=== PATIENT | female | born 1950 | race Caucasian/White ===

== ENCOUNTER 2017-04-28 13:29 | Emergency (ER) | payer OTHER ==
[~2017-04-28] VITALS: Ht 160 cm; Wt 56.6 kg
[~2017-04-28 13:29] MED LIST: AMLO-114 PO; CHOLTAB3 PO; MIRT15TA2 PO; NAPR-1169 PO; OMEP20TA40 PO; ONDA4TAB4 PO; OXYC-609 PO
[2017-04-28 13:34] VITALS: TEMP 36.6; Ht 160 cm; Wt 56.6 kg
[2017-04-28] MEDS ORDERED: ASPIRIN 81 MG CHEW PO STA (13:51)
--- NOTE | 2017-04-28 13:52 | EMERGENCY ROOM VISIT NOTE ---
History Report prepared by Cruz: Chauncey Edwards Under the Supervision of: Dr. Marilyn Carvalho M.D. First contact with patient: 13:41 Chief Complaint: CHEST PAIN Stated Complaint: CP, SOB History of Present Illness The patient is a 67 year old female who presents to the Emergency Room with complaints of persistent mid chest pain that started 2 days ago. She states that she has had a bit of shortness of breath as well. The patient notes that deep breathing worsens the pain. She went to Urgent Care prior to arrival today and was told to come here for further evaluation. The patient says she has not taken any medications for the pain. She denies any recent illnesses, abdominal pain, cough, or fevers. She has not had any recent travels. The patient notes that she has a history of MRSA, but no history of heart disease. She does not smoke cigarettes. The patient still has her gallbladder. The patient's mother had a provoked blood clot after a leg injury. Source of History: patient Onset: 2 days ago Position: chest Quality: other (pain) Timing: other (persistent) Modifying Factors (Worsening): breathing Associated Symptoms: + SOB, No fevers, No cough, No abdominal pain Note: Associated symptoms: Denies recent illnesses. Review of Systems See HPI for pertinent positives & negatives. A total of 10 systems reviewed and were otherwise negative. Past Medical & Surgical Medical Problems: (1) Benign hypertension (2) Bilateral thoracoscopic sympathectomy (3) Raynaud's disease Family History Blood clots Hypertension Social History Smoking Status: Never Smoker Smokeless Tobacco Use: No Alcohol Use: occasionally Marital Status: Housing Status: lives alone Occupation Status: employed Current/Historical Medications Scheduled Amlodipine (Norvasc), 10 MG PO BID Cholecalciferol (Vitamin D3), 1 CAP PO DAILY Gabapentin (Neurontin), 800 MG PO BID Tramadol (Ultram), 1 TAB PO BID Allergies Coded Allergies: Furosemide (Verified Allergy, Mild, rash, 04/28/17) Sulfa Antibiotics (Verified Allergy, Unknown, hives, 04/28/17) Linezolid (Verified Adverse Reaction, Unknown, fatigue, loss of appetite, 04/28/17) Physical Exam Vital Signs Date Time Temp Pulse Resp B/P (MAP) Pulse Ox O2 Delivery O2 Flow Rate FiO2 04/28/17 15:48 65 18 132/71 96 04/28/17 14:30 62 20 133/83 97 Room Air 04/28/17 13:52 71 04/28/17 13:34 36.6 67 18 146/88 97 Room Air Physical Exam Vital signs reviewed. General: Well-appearing 67 year old female, in no significant distress. HEENT: No scleral icterus, PERRLA, neck supple. Atraumatic. Cardiovascular: Regular rate and rhythm, no extra sounds. Pulmonary: Clear to auscultation bilaterally, normal work of breathing. Abdomen: Soft, nontender, nondistended, positive bowel sounds. Musculoskeletal: Atraumatic, no peripheral edema. Neurologic: Patient awake alert and oriented x 3, full strength in all 4 extremities. Cranial nerves 2 through 12 grossly intact. Skin: Warm, dry, no rash Medical Decision & Procedures ER Provider Diagnostic Interpretation: Radiology results as stated below per my review and radiologist interpretation: CHEST ONE VIEW PORTABLE CLINICAL HISTORY: chest pain COMPARISON STUDY: 05/15/2014 FINDINGS: The bones soft tissues and hemidiaphragms are normal. The cardiomediastinal silhouette is normal. The lungs are clear. The pulmonary vasculature is normal. Possible small nodular density left pulmonary apex with CT chest recommended. IMPRESSION: Artifact versus small nodular density left pulmonary apex. CT of chest is recommended as follow-up. Study is otherwise negative. The above report was generated using voice recognition software. It may contain grammatical, syntax or spelling errors. Electronically signed by: Kai Yuen M.D. 04/28/2017 2:33 PM Dictated Date/Time: 04/28/2017 2:25 PM (CHEST) THORAX WITH CT DOSE: 197.30 mGy.cm HISTORY: Nodule pulmonary nodule L pulm apex TECHNIQUE: Multiaxial CT images of the chest were performed following the intravenous administration of contrast. A dose lowering technique was utilized adhering to the principles of ALARA. COMPARISON: 01/05/2014 FINDINGS: 8 x 4 mm groundglass nodule medially anterior to the left major fissure image 15. This appears represent a slightly progressive air or interval development compared to the prior study. Lungs otherwise are clear. Minimal dependent basilar atelectasis. Small hiatal hernia. Air filled esophagus unchanged in the prior study. No significant mediastinal or hilar adenopathy. IMPRESSION: 1. 8 x 4 mm groundglass nodule medially anterior to the left major fissure image 15. 2. Stated chest is otherwise negative. 3. Follow-up per Fleischner criteria Please refer to below summary of Fleischner criteria recommendations for follow-up of incidental CT nodules (Thad Manriquez, Guidelines for management of small pulmonary nodules detected on CT scans: A statement from the Fleischner Society, Radiology 237: [phone].) SOLID NODULES Solitary nodule size: <6 mm * low risk patients: no follow-up needed * high risk patients: optional CT at 12 months Solitary nodule size: 6-8 mm * low risk patients: follow-up at 6-12 months, then consider further follow-up at 18-24 months * high risk patients: initial follow-up CT at 6-12 months and then at 18-24 months if no change Solitary nodule size: >8 mm * either low or high risk patients - consider follow-up CT at 3 months, and/or CT-PET, and/or biopsy Multiple nodules size: <6 mm * low risk patients: no routine follow-up * high risk patients: optional CT at 12 months Multiple nodules size: 6-8 mm * low risk patients: follow-up at 3-6 months, then consider further follow-up at 18-24 months * high risk patients: follow-up at 3-6 months, then at 18-24 months if no change Multiple nodules size: >8 mm * low risk patients: follow-up at 3-6 months, then consider further follow-up at 18-24 months * high risk patients: follow-up at 3-6 months, then at 18-24 months if no change Note: newly detected indeterminate nodule in persons 35 years of age or older. * Low risk patients: minimal or absent history of smoking and/or other known risk factors * high risk patients: history of smoking or of other known risk factors (e.g. first degree relative with lung cancer, or exposure to asbestos, radon, uranium) * if a nodule up to 8 mm is partly solid or is ground glass further follow-up is required after 24 months to exclude possible slow growing adenocarcinoma (ADRIANNE) SUBSOIL NODULES Solitary pure ground-glass nodule * nodule size <6 mm - no CT follow-up required * nodule size >=6 mm - follow-up CT at 6-12 months, then every 2 years until 5 years Solitary part-solid nodule * nodule size <6 mm - no CT follow-up required * nodule size >=6 mm - follow-up CT at 3-6 months. If unchanged, and solid component remains <6 mm, then annual follow-up for 5 years Multiple subsolid nodules * nodule size <6 mm - follow-up CT at 3-6 months, consider further follow-up at 2 and 4 years if stable * nodule size >=6 mm - follow-up CT at 3-6 months, subsequent management based on the most suspicious nodule(s) The above report was generated using voice recognition software. It may contain grammatical, syntax or spelling errors. Electronically signed by: Kai Yuen M.D. 04/28/2017 3:10 PM Dictated Date/Time: 04/28/2017 3:06 PM Laboratory Results 04/28/17 14:15 Red Blood Count 4.46, Mean Corpuscular Volume 97.5, Mean Corpuscular Hemoglobin 32.7, Mean Corpuscular Hemoglobin Concent 33.6, Mean Platelet Volume 9.1, Neutrophils (%) (Auto) 71.5, Lymphocytes (%) (Auto) 21.7, Monocytes (%) (Auto) 5.6, Eosinophils (%) (Auto) 0.7, Basophils (%) (Auto) 0.2, Neutrophils # (Auto) 7.17, Lymphocytes # (Auto) 2.17, Monocytes # (Auto) 0.56, Eosinophils # (Auto) 0.07, Basophils # (Auto) 0.02 04/28/17 14:15 Test 04/28/17 14:15 04/28/17 14:22 White Blood Count 10.02 K/uL (4.8-10.8) Red Blood Count 4.46 M/uL (4.2-5.4) Hemoglobin 14.6 g/dL (12.0-16.0) Hematocrit 43.5 % (37-47) Mean Corpuscular Volume 97.5 fL (80-100) Mean Corpuscular Hemoglobin 32.7 pg (25-34) Mean Corpuscular Hemoglobin Concent 33.6 g/dl (32-36) Platelet Count 253 K/uL (130-400) Mean Platelet Volume 9.1 fL (7.4-10.4) Neutrophils (%) (Auto) 71.5 % Lymphocytes (%) (Auto) 21.7 % Monocytes (%) (Auto) 5.6 % Eosinophils (%) (Auto) 0.7 % Basophils (%) (Auto) 0.2 % Neutrophils # (Auto) 7.17 K/uL (1.4-6.5) Lymphocytes # (Auto) 2.17 K/uL (1.2-3.4) Monocytes # (Auto) 0.56 K/uL (0.11-0.59) Eosinophils # (Auto) 0.07 K/uL (0-0.5) Basophils # (Auto) 0.02 K/uL (0-0.2) RDW Standard Deviation 48.7 fL (36.4-46.3) RDW Coefficient of Variation 13.7 % (11.5-14.5) Immature Granulocyte % (Auto) 0.3 % Immature Granulocyte # (Auto) 0.03 K/uL (0.00-0.02) Anion Gap 6.0 mmol/L (3-11) Est Creatinine Clear Calc Drug Dose 55.9 ml/min Estimated GFR () 85.8 Estimated GFR (Non- 74.0 BUN/Creatinine Ratio 13.6 (10-20) Calcium Level 9.2 mg/dl (8.5-10.1) Magnesium Level 1.8 mg/dl (1.8-2.4) Total Bilirubin 0.9 mg/dl (0.2-1) Direct Bilirubin 0.2 mg/dl (0-0.2) Aspartate Amino Transf (AST/SGOT) 26 U/L (15-37) Alanine Aminotransferase (ALT/SGPT) 24 U/L (12-78) Alkaline Phosphatase 86 U/L (45-117) Total Creatine Kinase 105 U/L (26-192) Creatine Kinase MB 1.3 ng/ml (0.5-3.6) Creatine Kinase MB Ratio 1.2 (0-3.0) Total Protein 7.4 gm/dl (6.4-8.2) Albumin 3.8 gm/dl (3.4-5.0) Lipase 351 U/L (73-393) Bedside D-Dimer 291 ng/mlFEU (0-450) Bedside Troponin I < 0.030 ng/ml (0-0.045) Laboratory results per my review. Medications Administered Medications (Trade) Dose Ordered Sig/Todd Route Start Time Stop Time Status Last Admin Dose Admin Aspirin (Aspirin Chew) 324 mg NOW STAT PO 04/28/17 13:51 04/28/17 13:53 DC 04/28/17 13:59 324 MG ECG Indication: chest pain Rate (beats per minute): 62 Rhythm: normal sinus Findings: T-wave inversion (Anterior), no ectopy, other (no ST elevation) ED Course 1343: Past medical records reviewed. The patient was evaluated in room C8. A complete history and physical examination was performed. 1351: Ordered Aspirin Chew 324 mg PO. 1455: I reevaluated the patient and told her that she needs a CT for her pulmonary nodule. Medical Decision DDx: Acute coronary syndrome, pulmonary embolus, aortic dissection, musculoskeletal pain, pneumonia, pleural effusion, pneumothorax This patient was evaluated and appeared to be in no significant distress. She was given aspirin 324 mg to chew. EKG was performed and reveals no evidence of acute ischemia. The x-ray of the chest reveals a pulmonary nodule in the left apex. Cardiac enzymes are normal. D-dimer is normal. Radiology recommends CT scan in follow-up regarding the pulmonary nodule. This study was performed and is read as an 8 x 4 mm nodule. Findings were explained to the patient. She seems to have expressed understanding. Patient was referred to her PCP in follow-up. I do not think this is the source of the patient's pain today, rather it is likely pleuritic. She was encouraged to return to the ER for worsening of symptoms or any medical concerns. Medication Reconcilliation Current Medication List: was personally reviewed by me Blood Pressure Screening Patient's blood pressure: Elevated blood pressure Blood pressure disposition: Elevated BP felt to be situational Impression Primary Impression: Pain of anterior chest wall with respiration Additional Impression: Pulmonary nodule Scribe Attestation The scribe's documentation has been prepared under my direction and personally reviewed by me in its entirety. I confirm that the note above accurately reflects all work, treatment, procedures, and medical decision making performed by me. Departure Information Referrals No Doctor, Assigned (PCP) Patient Instructions My [facility] Problem Qualifiers
[2017-04-28] MEDS ORDERED: CHOL2000 PO (14:01)
[2017-04-28] MEDS ORDERED: TRAM-10 PO (14:01)
[2017-04-28] MEDS ORDERED: GABA800T PO (14:01)
[2017-04-28 14:25] LABS: BASO % 0.2 %; BASO ABS # 0.02 K/uL (0-0.2); COMPLETE YES; EOS % 0.7 %; HEMATOCRIT 43.5 % (37-47); IG% 0.3 %; LYMPH % 21.7 %; LYMPH ABS # 2.17 K/uL (1.2-3.4); MEAN CELL VOLUME 97.5 fL (80-100); MEAN CORPUSCULAR HEMOGLOBIN 32.7 pg (25-34); MEAN CORPUSCULAR HGB CONC 33.6 g/dl (32-36); MEAN PLATELET VOLUME 9.1 fL (7.4-10.4); MONO % 5.6 %; NEUT % 71.5 %; PLATELET COUNT 253 K/uL (130-400); RED BLOOD COUNT 4.46 M/uL (4.2-5.4); WHITE BLOOD COUNT 10.02 K/uL (4.8-10.8)
--- NOTE | 2017-04-28 14:34 | DIAGNOSTIC IMAGING REPORT ---
CHEST ONE VIEW PORTABLE CLINICAL HISTORY: chest pain COMPARISON STUDY: 05/15/2014 FINDINGS: The bones soft tissues and hemidiaphragms are normal. The cardiomediastinal silhouette is normal. The lungs are clear. The pulmonary vasculature is normal. Possible small nodular density left pulmonary apex with CT chest recommended. IMPRESSION: Artifact versus small nodular density left pulmonary apex. CT of chest is recommended as follow-up. Study is otherwise negative. The above report was generated using voice recognition software. It may contain grammatical, syntax or spelling errors. Electronically signed by: Kai Yuen M.D. 04/28/2017 2:33 PM Dictated Date/Time: 04/28/2017 2:25 PM
[2017-04-28 14:41] LABS: POINT OF CARE TROPONIN I < 0.030 ng/ml (0-0.045)
[2017-04-28 14:41] LABS: BUN/CREATININE RATIO 13.6 (10-20); CALCIUM 9.2 mg/dl (8.5-10.1); CREATININE 0.83 mg/dl (0.60-1.20); MAGNESIUM 1.8 mg/dl (1.8-2.4); POTASSIUM 4.2 mmol/L (3.5-5.1)
[2017-04-28 14:44] LABS: CKMB/CK RATIO 1.2 (0-3.0)
[2017-04-28] MEDS ORDERED: OPTIRAY 320 IV PRN (15:00)
--- NOTE | 2017-04-28 15:12 | DIAGNOSTIC IMAGING REPORT ---
(CHEST) THORAX WITH CT DOSE: 197.30 mGy.cm HISTORY: Nodule pulmonary nodule L pulm apex TECHNIQUE: Multiaxial CT images of the chest were performed following the intravenous administration of contrast. A dose lowering technique was utilized adhering to the principles of ALARA. COMPARISON: 01/05/2014 FINDINGS: 8 x 4 mm groundglass nodule medially anterior to the left major fissure image 15. This appears represent a slightly progressive air or interval development compared to the prior study. Lungs otherwise are clear. Minimal dependent basilar atelectasis. Small hiatal hernia. Air filled esophagus unchanged in the prior study. No significant mediastinal or hilar adenopathy. IMPRESSION: 1. 8 x 4 mm groundglass nodule medially anterior to the left major fissure image 15. 2. Stated chest is otherwise negative. 3. Follow-up per Fleischner criteria Please refer to below summary of Fleischner criteria recommendations for follow-up of incidental CT nodules (Thad Manriquez, Guidelines for management of small pulmonary nodules detected on CT scans: A statement from the Fleischner Society, Radiology 237: [phone].) SOLID NODULES Solitary nodule size: <6 mm * low risk patients: no follow-up needed * high risk patients: optional CT at 12 months Solitary nodule size: 6-8 mm * low risk patients: follow-up at 6-12 months, then consider further follow-up at 18-24 months * high risk patients: initial follow-up CT at 6-12 months and then at 18-24 months if no change Solitary nodule size: >8 mm * either low or high risk patients - consider follow-up CT at 3 months, and/or CT-PET, and/or biopsy Multiple nodules size: <6 mm * low risk patients: no routine follow-up * high risk patients: optional CT at 12 months Multiple nodules size: 6-8 mm * low risk patients: follow-up at 3-6 months, then consider further follow-up at 18-24 months * high risk patients: follow-up at 3-6 months, then at 18-24 months if no change Multiple nodules size: >8 mm * low risk patients: follow-up at 3-6 months, then consider further follow-up at 18-24 months * high risk patients: follow-up at 3-6 months, then at 18-24 months if no change Note: newly detected indeterminate nodule in persons 35 years of age or older. * Low risk patients: minimal or absent history of smoking and/or other known risk factors * high risk patients: history of smoking or of other known risk factors (e.g. first degree relative with lung cancer, or exposure to asbestos, radon, uranium) * if a nodule up to 8 mm is partly solid or is ground glass further follow-up is required after 24 months to exclude possible slow growing adenocarcinoma (ADRIANNE) SUBSOIL NODULES Solitary pure ground-glass nodule * nodule size <6 mm - no CT follow-up required * nodule size >=6 mm - follow-up CT at 6-12 months, then every 2 years until 5 years Solitary part-solid nodule * nodule size <6 mm - no CT follow-up required * nodule size >=6 mm - follow-up CT at 3-6 months. If unchanged, and solid component remains <6 mm, then annual follow-up for 5 years Multiple subsolid nodules * nodule size <6 mm - follow-up CT at 3-6 months, consider further follow-up at 2 and 4 years if stable * nodule size >=6 mm - follow-up CT at 3-6 months, subsequent management based on the most suspicious nodule(s) The above report was generated using voice recognition software. It may contain grammatical, syntax or spelling errors. Electronically signed by: Kai Yuen M.D. 04/28/2017 3:10 PM Dictated Date/Time: 04/28/2017 3:06 PM
[2017-04-28 15:48] VITALS: BP 132/71; PULSE 65; O2SAT 96
== END 2017-04-28 15:48 | disposition home or self-care (01) ==
LOC: C.EDB 13:30 → C.EDC 15:48
DX: R07.1 Chest pain on breathing (principal); R91.1 Solitary pulmonary nodule; I10 Essential (primary) hypertension; I73.00 Raynaud's syndrome without gangrene; Z82.49 Family history of ischemic heart disease and other diseases of the circulatory system; Z79.899 Other long term (current) drug therapy